=== PATIENT | female | born 1955 | race Caucasian/White ===

== ENCOUNTER → 2023-08-20 | Outpatient (CLI) | payer MEDICARE ==
[~2023-08-20] MED LIST: ASPI81CH PO; ATOR80 PO; CLOP75 PO; Prinivil10 MG PO
[2023-08-20 17:59] LABS: BASOPHILS ABSOLUTE AUTO 0.05 K/mm3 (0.00-0.23); BASOPHILS PERCENT AUTO 1 % (0-2); EOSINOPHILS ABSOLUTE AUTO 0.08 K/mm3 (0.00-0.68); EOSINOPHILS PERCENT AUTO 1 % (0-6); Hemoglobin 12.2 g/dL (11.5-16.0); IMMATURE GRAN ABSOLUTE AUTO 0.03 K/mm3 (0.00-0.10); IMMATURE GRAN PERCENT AUTO 0 % (0-1); LYMPHOCYTES ABSOLUTE AUTO 2.19 K/mm3 (0.84-5.20); LYMPHOCYTES PERCENT AUTO 27 % (21-46); MONOCYTES ABSOLUTE AUTO 0.44 K/mm3 (0.16-1.47); MONOCYTES PERCENT AUTO 5 % (4-13); Mean Corpuscular HGB 32.6 pg (26.0-34.0); Mean Corpuscular HGB Conc 34.9 g/dL (31.5-36.5); Mean Corpuscular Volume 94 fL (80-100); Mean Platelet Volume 10.6 fL (9.1-12.4); NEUTROPHILS ABSOLUTE AUTO 5.35 K/mm3 (1.96-9.15); NEUTROPHILS PERCENT AUTO 66 % (41-73); Platelet Count 431 K/mm3 (150-400); RDW Coefficient Variation 11.9 % (11.7-14.2); RDW Standard Deviation 40.8 fL (35.1-46.3); Red Blood Cell Count 3.74 M/mm3 (3.80-5.20); White Blood Cell Count 8.14 K/mm3 (4.00-11.30)
[2023-08-20 18:54] LABS: Alanine Aminotransfer (ALT/SGP 36 U/L (12-78); Albumin/Globulin Ratio 1.2 (0.8-1.8); Alk Phos 86 U/L (50-136); Anion Gap 11 mmol/L (3-11); Aspartate Aminotrans (AST/SGOT 22 U/L (12-37); Bilirubin, Total 0.4 mg/dL (0.1-1.0); Blood Urea Nitrogen 19 mg/dL (8-24); Bun/Creatinine Ratio 40.6 (12.0-20.0); CHOL/HDL RATIO 2.8; CO2, Blood 24 mmol/L (21-32); Calcium, Blood 9.7 mg/dL (8.5-10.1); Chloride, Blood 99 mmol/L (98-108); Cholesterol 110 mg/dL (50-200); Creatinine, Blood 0.47 mg/dL (0.40-1.00); Globulin, Blood 3.4 g/dL (2.2-4.0); Glomerular Filtration Rate 102 (60-); Glucose, Blood 100 mg/dL (70-99); HDL Cholesterol 39 mg/dL (>39); LDL/HDL RATIO 1.4; Low Density Lipoprotein Chol 55 mg/dL (0-110); Potassium, Blood 4.1 mmol/L (3.5-5.5); Sodium, Blood 130 mmol/L (136-145); Total Protein, Blood 7.4 g/dL (6.4-8.2); Triglycerides 80 mg/dL (30-160); Very Low Density Lipoprot Chol 16 mg/dL (6-32)
== END ==
LOC: LAB SHORT 15:17 → LAB 15:17
PROVIDERS: Family Medicine
DX: Z79.899 Other long term (current) drug therapy (principal)
CPT/HCPCS: 80053; 80061; 82306; 84443; 85025

== ENCOUNTER → 2024-09-27 | Outpatient (CLI) | payer MEDICARE | LOC: LAB 08:42 → LAB SHORT 08:42 | DX: Z79.899 Other long term (current) drug therapy (principal) ==